=== PATIENT | male | born 1980 | race Caucasian/White ===

== ENCOUNTER 2021-12-18 08:12 | Outpatient (CLI) | payer OTHER ==
--- NOTE | 2021-12-18 10:01 | MRI Report ---
PROCEDURE: SHOULDER WO - LT INDICATIONS: SHOULDER PAIN TECHNIQUE: Noncontrast oblique coronal T2 fast spin echo with fat saturation, oblique sagittal T1 spin echo and T2 fast spin echo with fat saturation, axial T1 spin echo and T2 fast spin echo with fat saturation t hrough the shoulder. COMPARISON: None. FINDINGS: Image quality: Excellent. Rotator cuff tendons are intact. There is some mild to moderate tendinopathy of the subscapularis ten don present. There is abnormal morphology to the anterior glenoid labrum. Imaging findings may represent a labral tear and if further evaluation is clinically indicated an MRI arthrogram may be of further clinical v alue. Bicipital tendon is within its normal location the bicipital groove. No significant glenohumeral joint degenerative change is seen. There is mild AC joint degenerative ch luis fernando present. No significant joint effusion is identified. IMPRESSION: 1. Abnormal morphology to the anterior glenoid labrum. Given the imaging findings I would recommend a n MR arthrogram for further characterization. 2. 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 3. Mild AC joint degenerative change. Reviewed by: Hunter Calix MD on 12/18/2021 9:59 AM PST Approved by: Hunter Calix MD on 12/18/2021 9:59 AM PST Station ID: [id number]
== END 2021-12-18 08:13 | disposition home or self-care (01) ==
LOC: DI 08:12
PROVIDERS: ATTEND Family Medicine
DX: R93.6 Abnormal findings on diagnostic imaging of limbs (principal); M67.814 Other specified disorders of tendon, left shoulder; M19.012 Primary osteoarthritis, left shoulder

== ENCOUNTER 2023-01-25 09:26 | Outpatient (CLI) | payer OTHER ==
--- NOTE | 2023-01-26 08:21 | SLEEP CARE CONSULTATION ---
Information from patient questionnaire entered by Renzo Story. I have reviewed and concur with the information entered by Renzo Story. This document represents the service I personally performed and the decisions made by me, Leonard Worthington MD, [facility]. History of Present Illness Service Date and Time: 01/25/2023 0926 Reason for Visit: New patient Chief Complaint: reports: Other (PROVIDER REFFERAL) Date of Onset: 7YRS Usual bedtime: 9-10 Time it takes to fall asleep: 40MIN Snores at night: No Observed to quit breathing while asleep: No Sleeps alone due to snoring: No Number of times waking at night: 2 Reasons for waking at night: reports: Bathroom, Other (UNKNOWN) Additional HPI information: I had the pleasure of seeing Mr. Mercado today regarding the possibility of him having a sleep disorder. As you know, he is a 42-year-old gentleman who complains of pqprhogmh-jo-kxiyakc high blood pressure. Presently, he is taking two medications. The patient tells me that he normally goes to bed around 9 - 10 pm, and it takes him approximately 40 minutes to fall asleep. He has not been told that he snores loudly or irregularly at night. He has never been observed to stop breathing in his sleep. His sleeps in the same bed. He can recall waking up on the average of 2 times during the night. Most of the time he wakes up because of having to use the bathroom. He has never awakened because of his own snoring, choking, or having to gasp for air. There is a lot of tossing and turning in his sleep. He has somniloquy (sleep talking) but not somnambulism (sleep walking). Generally, there is no recollection of dreams. In the morning he usually gets up out of the bed around 4:30 5:15 a.m. not feeling refreshed nor rested. He usually has a morning headache that lasts 3 hours to all day. During the day he does not feel sleepy or fatigued. His score on [place] Sleepiness Scale is 9 out of 24. He has never fallen asleep while driving nor has had any accident due to sleepiness. He usually does not take naps during the day. He denies having restless leg syndrome. He reports having impaired concentration during the day. Subjective Initial [place] Sleepiness Scale score: 9 (01/25/23) Past Medical History Past Medical History: reports: Hypertension, Anxiety, Depression Social History The patient's occupation is a AM. Patient is Legally and lives in . Have you smoked in the past 12 months: No Alcohol use: No Caffeine use: No Family History Family history of sleep disordered breathing: No Allergies and Home Medications Known drug allergies: No Drug allergies reviewed: Yes Home medication list reviewed: Yes Review of Systems Weight gain over past 5 years: 10 Cardiovascular: reports: high blood pressure. denies: palpitations, chest pain, irregular heart rate or pulse, leg or foot swelling, have to sleep sitting up, other Respiratory: denies: shortness of breath, wheeze, sputum production, chronic cough, other Gastrointestinal: denies: heartburn, difficulty swallowing, nausea, vomitting, diarrhea, abdominal pain, other Urinary: denies: incontinence, frequency, urgency, impotence, other Neurological: denies: headaches, seizure, head trauma, disorientation, speech dysfunction, gait or balance problems, fainting or unconsciousness, other Psychiatric: reports: anxiety, depression Ear/Nose/Throat: denies: nasal congestion, sinus problems, nose bleeds, dry mouth/throat, hoarseness, injury to nose, tonsillectomy, wisdom teeth removed, other Endocrine: denies: thyroid disease, history of goiter, sluggishness, too hot or cold, excessive thirst, increased appetite, increased urination, unexplained weakness, other Musculoskeletal: denies: joint pain, neck pain, back pain, joint swelling, muscle pain or cramping, mobility problems, other Immunologic: denies: sneezing, rash, itching, allergies to food or environment, other Physical Exam Vital signs obtained and entered by: RENZO Zuniga MA Blood Pressure: 136/98 (LEFT ARM) Cuff size: regular Heart Rate: 70 O2 Saturation: 100 Height: 5 ft 10 in Weight: 207 lb 6.4 oz Body Mass Index: 29.7 BMI Classification: Overweight Neck circumference: 13 Mood/affect: Normal HEENT: No craniofacial malformation Nostrils: patent to airflow Turbinates: normal Septum: midline Mouth and throat: narrow oropharynx Soft palate: long Hard palate: normal Uvula: normal Uvula visualization: 50% Mallampati Class II Tongue: normal in size Tonsils: small Chin and jaw: normal size and position Neck: normal w/o lymphadenopathy or thyromegaly Heart: regular rate and rhythm Lungs: clear bilaterally Extremities: no edema or clubbing Neurologic: intact Impression and Plan IMPRESSION: 1. Suspected sleep apnea, as suggested by history of unrefreshed sleep, morning headache, cognitive impairment, and hypertension. Narrow oropharynx and obesity are common predisposing factors for obstructive sleep apnea-hypopnea syndrome. I recommend proceeding to polysomnography to confirm the diagnosis and to assess severity. I informed the patient of what the sleep studies involve and after some discussion, he agreed to proceed. Plan: 1. Schedule polysomnography and return in 1 to 2 weeks after the study to discuss result and initiate therapy. 2. Avoid alcohol, sedative and muscle relaxant around bedtime. 3. Attempt to lose some weight. Follow up with Sleep Care in: 1-2 months Visit Type: In Office Time Spent with Patient (minutes): 15 Provider Statement: I spent 100% of the Face to Face Visit with the patient with greater than 50% spent counseling the patient and coordination of care.
[2023-01-26 08:28] VITALS: BP 136/98; O2SAT 100
== END 2023-01-25 09:27 | disposition home or self-care (01) ==
LOC: SC 09:26
PROVIDERS: ATTEND Internal Medicine Pulmonary Disease
DX: G47.8 Other sleep disorders (principal); R51.9 Headache, unspecified; R41.89 Other symptoms and signs involving cognitive functions and awareness; I10 Essential (primary) hypertension; E66.3 Overweight; Z68.29 Body mass index [BMI] 29.0-29.9, adult
CPT/HCPCS: 99202; 99212

== ENCOUNTER 2023-02-23 20:34 | Outpatient (CLI) | payer OTHER | END 2023-02-23 20:35 | disposition home or self-care (01) | LOC: SC 20:34 | PROVIDERS: ATTEND Internal Medicine Pulmonary Disease | DX: G47.33 Obstructive sleep apnea (adult) (pediatric) (principal) | CPT/HCPCS: 95810 ==

== ENCOUNTER 2023-03-02 12:50 | Outpatient (CLI) | payer OTHER ==
--- NOTE | 2023-03-02 15:23 | MRI Report ---
PROCEDURE: SHOULDER WO - LT INDICATIONS: LEFT SHOULDER PAIN TECHNIQUE: Noncontrast oblique coronal T2 fast spin echo with fat saturation, oblique sagittal T1 spin echo and T2 fast spin echo with fat saturation, axial T1 spin echo and T2 fast spin echo with fat saturation t hrough the shoulder. COMPARISON: 12/18/2021. FINDINGS: Image quality: Excellent. Rotator cuff: Low to moderate grade articular and bursal surface partial-thickness tear involving dis angely supraspinatus at its insertion on humeral head is seen extending to musculotendinous junction. Di stal infraspinatus and subscapularis tendinosis is seen. No full-thickness rotator cuff tendon ruptur e. No rotator cuff muscle atrophy on sagittal images. Bones and bursae: No bone marrow contusions or fractures. Mild to moderate acromioclavicular joint o steoarthritic changes are seen with joint space narrowing and downward osteophyte formation depressin g on musculotendinous junction of supraspinatus. The acromion demonstrates conventional anatomy, with out an os acromiale. Small amount of subacromial subdeltoid bursal fluid is seen, no gross loose bodi es. Capsule and soft tissues: There is subtle fraying of superior anterior labrum at 12 to 1:00 position and show abnormal T2 hyperintense signal concerning for subtle superior anterior labral tear. The kennedi g head of the biceps tendon demonstrates normal location and morphology. The rotator interval appear s normal, without fibrosis. The coracohumeral ligament is normal in thickness. IMPRESSION: 1. Low to moderate grade articular and bursal surface partial-thickness tear involving distal suprasp inatus extending to musculotendinous junction. Distal infraspinatus and subscapularis tendinosis. No full-thickness rotator cuff tendon rupture. 2. Mild to moderate acromioclavicular joint osteoarthritis. No fracture or dislocation. Small amount of subacromial subdeltoid bursal fluid, no gross loose bodies. 3. Suggestion of subtle superior anterior labral tear at 12 to 1:00 position. Reviewed by: Garcia Agustin MD on 03/02/2023 3:22 PM PST Approved by: Garcia Agustin MD on 03/02/2023 3:22 PM PST Station ID: [id number]
== END 2023-03-02 12:51 | disposition home or self-care (01) ==
LOC: DI 12:50
PROVIDERS: ATTEND Orthopaedic Surgery
DX: M75.112 Incomplete rotator cuff tear or rupture of left shoulder, not specified as traumatic (principal); M19.012 Primary osteoarthritis, left shoulder; M75.52 Bursitis of left shoulder

== ENCOUNTER 2023-05-07 08:38 | Outpatient (CLI) | payer OTHER ==
--- NOTE | 2023-05-07 09:06 | Sleep Patient Instructions ---
Sleep Center Visit Summary - Patient Visit Information Reason for Visit: 2-month follow-up - Patient Instructions Instructions Attached: CPAP Additional Instructions: You were here for follow up of Positional therapy. You are being started on CPAP therapy with pressure setting at 4-15 cmH2O. You will need to call the sleep care office to set up your follow up once you have your CPAP machine to check compliance and response to therapy at that time. You may call the office with any concerns about pressure feeling too low or too much for adjustment, if needed. You should contact DME supplier for any questions or concerns about mask or equipment. Please call office to schedule a follow up appointment in the sleep care office one month after obtaining new device. - Clinic Information Contact: [facility] [address] [place] [address] [email or web address] T: [phone]
--- NOTE | 2023-05-07 09:10 | SLEEP CARE CONSULTATION ---
Information from patient questionnaire entered by Renzo Story. I have reviewed and concur with the information entered by Renzo Story. This document represents the service I personally performed and the decisions made by me, Cheryl Beckett ARNP. History of Present Illness Service Date and Time: 05/07/2023 0838 Previous diagnosis: Mild, Obstructive Sleep Apnea-Hypopnea Syndrome AHI: 5.4 (02/23/23) Reason for follow up: other (2 MONTH F/U POSITTIONAL) Type of Sleep Study: Polysomnography HPI additional information: ZARINA MCELROY was diagnosed to have mild, AHI 5.4, obstructive sleep apnea-hypopnea syndrome and returned today for positional therapy two month follow-up. Sleep Study - Results Type of Sleep Study: Polysomnography CPAP Compliance Data Compliance data discussion: He says he has not been able to stay off his back with use of pillows or rolls to help him. He says he moves a lot in bed. Subjective Initial [place] Sleepiness Scale score: 9 (01/25/23) Current [place] Sleepiness Scale score: 16 (05/07/23) Allergies and Home Medications Known drug allergies: No Drug allergies reviewed: Yes Home medication list reviewed: Yes (no changes) Allergy and home medication list: Allergies No Known Drug Allergies Allergy (Verified 05/05/23 08:53) Review of Systems Review of systems same as previous: No (HYPERTENSION) Physical Exam Vital signs obtained and entered by: RENZO Zuniga MA Blood Pressure: 139/87 (RIGHT ARM) Cuff size: regular Heart Rate: 68 O2 Saturation: 100 Height: 5 ft 10 in Weight: 204 lb 12.8 oz Body Mass Index: 29.3 BMI Classification: Overweight Impression and Plan 1. Obstructive Sleep Apnea-Hypopnea Syndrome, mild. Using positional therapy, the patient is not able to stay off his back. He says he has tried different methods with pillows or rolls behind his back but he moves so much that he ends up on his back at night. He is very tired during the day and just wants to get a good night sleep. He was recently evaluated by a clerical adviser and encouraged to try the CPAP. We discussed other options, including oral appliance therapy, but he would like to go with the CPAP. He will be started on nasal autoCPAP therapy with pressure set at 4-15 cmH2O. A manual titration study will be completed if unable to find optimal treatment pressure with office adjustments. Compliance guidelines also reviewed. A copy of compliance guidelines will be given for reference at check out. Because the apnea is more severe supine, I instructed to avoid sleeping supine using pillow positioning until able to start CPAP use. Patient's apnea severity and rationale for treatment to reduce apnea, improve sleep quality and reduce cardiovascular and cerebrovascular events was reviewed. I also reviewed the benefit of consistent therapy for hypertension, depression/anxiety. 2. Obesity, unspecified. Currently patients BMI is 29.3. Obesity increases the risk of apnea, CPAP pressure requirements and overall health risks especially cardiovascular and diabetes. Thus patient is advised to lose weight. * Nasal auto CPAP therapy, pressure at 4-15 cm H2O. * Attempt to lose weight. * Avoid alcohol consumption near bedtime. * Avoid supine sleep until using CPAP. * The patient is again cautioned about driving until sleepiness completely resolves. * Return one month after CPAP obtained. I will assess response to therapy and compliance at that time. Counseling Topics: Sleeping position, Weight loss health impact Prescriptions: Auto CPAP Follow up with Sleep Care in: other (Compliance follow up) Visit Type: In Office Time Spent with Patient (minutes): 20 Provider Statement: I spent 100% of the Face to Face Visit with the patient with greater than 50% spent counseling the patient and coordination of care.
[2023-05-07 09:13] VITALS: BP 139/87; O2SAT 100
== END 2023-05-07 08:39 | disposition home or self-care (01) ==
LOC: SC 08:38
PROVIDERS: ATTEND Nurse Practitioner Family
DX: G47.33 Obstructive sleep apnea (adult) (pediatric) (principal)
CPT/HCPCS: 99212; 99213

== ENCOUNTER 2023-06-14 12:45 | Outpatient (CLI) | payer OTHER ==
[2023-06-14 17:43] LABS: BASOPHILS # (AUTO) 0.1 10^3/uL (0.0-0.1); BASOPHILS % (AUTO) 0.8 %; EOSINOPHILS # (AUTO) 0.2 10^3/uL (0.0-0.7); EOSINOPHILS % (AUTO) 1.9 %; HGB - HEMOGLOBIN 14.5 g/dL (14.0-18.0); LYMPHOCYTES # (AUTO) 2.3 10^3/uL (1.5-3.5); LYMPHOCYTES % (AUTO) 25.6 %; MEAN CORPUSCULAR HEMOGLOBIN 29.9 pg (27.0-31.0); MEAN CORPUSCULAR HGB CONC 32.2 g/dL (32.0-36.0); MEAN CORPUSCULAR VOLUME 92.8 fL (80.0-94.0); MEAN PLATELET VOLUME 9.8 fL (7.4-11.4); MONOCYTES # (AUTO) 0.6 10^3/uL (0.0-1.0); MONOCYTES % (AUTO) 6.9 %; NEUTROPHILS # (AUTO) 5.9 10^3/uL (1.5-6.6); NEUTROPHILS % (AUTO) 64.3 %; PLT - PLATELET COUNT 469 10^3/uL (130-450); RED BLOOD COUNT 4.85 10^6/uL (4.70-6.10); RED CELL DISTRIBUTION WIDTH 11.9 % (12.0-15.0); WHITE BLOOD COUNT 9.1 x10^3/uL (4.8-10.8)
[2023-06-14 17:58] LABS: CALCIUM 10.3 mg/dL (8.5-10.3); CREATININE 0.8 mg/dL (0.6-1.3); POTASSIUM 3.3 mmol/L (3.5-4.5)
== END 2023-06-14 13:00 | disposition home or self-care (01) ==
LOC: LAB.N 12:45
PROVIDERS: ATTEND Physician Assistant Medical
DX: R60.0 Localized edema (principal)
CPT/HCPCS: 36415; 80048; 83880; 85025; 85379

== ENCOUNTER 2023-07-22 11:24 | Outpatient (CLI) | payer OTHER ==
--- NOTE | 2023-07-22 12:14 | Sleep Patient Instructions ---
Sleep Center Visit Summary - Patient Visit Information Reason for Visit: First compliance follow-up - Patient Instructions Additional Instructions: You were here for follow up of CPAP therapy. You will be continued on CPAP therapy with pressure at 5-7 cmH2O. You should follow up with sleep care in 3 months. You may contact us sooner for any questions or concerns. - Clinic Information Contact: [facility] [address] [place] [address] [email or web address] T: [phone]
--- NOTE | 2023-07-22 12:24 | SLEEP CARE CONSULTATION ---
Information from patient questionnaire entered by Sara Story. I have reviewed and concur with the information entered by Sara Story. This document represents the service I personally performed and the decisions made by me, Cheryl Beckett ARNP. History of Present Illness Service Date and Time: 07/22/2023 112 Previous diagnosis: Mild, Obstructive Sleep Apnea-Hypopnea Syndrome AHI: 5.4 (02/23/23) Reason for follow up: first compliance Equipment type: CPAP (RESMED Airsense 11, S/U 05/19/23) Equipment obtained from: Other ([facility]; getting supplies) Mask style: Nasal (over the nose) Mask brand: SurgiQuest (Eson 2) Backup mask available: No (will keep old mask when replaced) Last cushion change: not changed out yet Type of Sleep Study: Polysomnography (02/23/23) HPI additional information: ZRAINA MCELROY was diagnosed to have mild, AHI 5.4, obstructive sleep apnea-hypopnea syndrome and returned today for CPAP therapy first compliance follow-up. Sleep Study - Results Type of Sleep Study: Polysomnography CPAP Compliance Data - Data Reviewed with Patient Average duration of nightly device use: 5 hours Compliance rate %: 70 (/ days used initially) Current pressure setting (cmH2O): 5-7 (median 5.6, avg 6.7, max 6.8) Average residual AHI: 1.5 Central apnea: 0.3 Obstructive apnea: 0.6 Hypopnea: 0.5 Average large leak: 2.4 L/min Subjective Missed days of use due to: reports: illness (nasal congestion), other (fell asleep on couch) Patient concerns: reports: air blowing in eyes (sometimes), condensation in mask/hose, nasal congestion. denies: aerophagia, mask discomfort, mask leak noise, dry mouth, nose, throat, epistaxis Observed to snore while using device: No Current pressure setting perceived as: comfortable On therapy, patient: reports: sleeping better, other (still waking up tired). denies: drowsiness while driving Initial [place] Sleepiness Scale score: 9 (01/25/23) Current [place] Sleepiness Scale score: 16 (07/22/23) Allergies and Home Medications Known drug allergies: No Drug allergies reviewed: Yes Home medication list reviewed: Yes (no changes) Allergy and home medication list: Allergies No Known Drug Allergies Allergy (Verified 07/20/23 11:38) Review of Systems Review of systems same as previous: Yes (NO CHANGE) Physical Exam Vital signs obtained and entered by: SARA Zuniga MA Blood Pressure: 133/90 (LEFT ARM) Cuff size: regular Heart Rate: 69 O2 Saturation: 99 Height: 5 ft 10 in Weight: 205 lb 12.8 oz Body Mass Index: 29.5 BMI Classification: Overweight Impression and Plan 1. Obstructive Sleep Apnea-Hypopnea Syndrome, mild, with good treatment compliance and good apnea control. On CPAP therapy, the patient has better sleep quality and some improved restfulness in morning. He still complains of feeling some tiredness in the morning. He has significant improvement of his sleep apnea and is satisfied with current therapy. He has had some condensation in the hose and mask in the last week and he turned off his humidifier. I explained that he can turn up the temperature on his heated hose to reduce condensation and if he keeps a cold sleeping room he can obtain a hose cover to insulate the tube. He may also reduce humidifier setting as needed to reduce condensation. He voiced understanding. He has had issues with the mask leaking air into his eyes and says the larger mask is worse. His nose is touching the tip of his nose with the medium cushion. I gave him a Shey Nuance Pro gel pillows mask set to take home and try for increased comfort and to reduce air leaking into his eyes. Patient's apnea severity and rationale for treatment to reduce apnea, improve sleep quality and reduce cardiovascular and cerebrovascular events was reviewed. I also reviewed the benefit of consistent device use of CPAP for hypertension, depression/anxiety. 2. Overweight, unspecified. Currently patients BMI is 29.5. Obesity increases the risk of apnea, CPAP pressure requirements and overall health risks especially cardiovascular and diabetes. Thus patient is advised to lose weight. * Continue auto CPAP pressure at 5-7 cmH2O * Notify me if snoring with mask or feeling that the pressure is too much or too little * Attempt to lose weight * Call this office if any problems using CPAP * Return for follow up in 3 months, or sooner if concerns arise Continue with device pressure at (cmH2O): 5-7 Mask provided: Yes Counseling Topics: Spare mask, Weight loss health impact Follow up with Sleep Care in: 3 months Visit Type: In Office Time Spent with Patient (minutes): 20 Provider Statement: I spent 100% of the Face to Face Visit with the patient with greater than 50% spent counseling the patient and coordination of care.
[2023-07-22 12:32] VITALS: BP 133/90; O2SAT 99
== END 2023-07-22 11:25 | disposition home or self-care (01) ==
LOC: SC 11:24
PROVIDERS: ATTEND Nurse Practitioner Family
DX: G47.33 Obstructive sleep apnea (adult) (pediatric) (principal); E66.3 Overweight; Z68.29 Body mass index [BMI] 29.0-29.9, adult
CPT/HCPCS: 99212; 99213

== ENCOUNTER 2023-10-22 08:21 | Outpatient (CLI) | payer OTHER ==
--- NOTE | 2023-10-22 08:59 | Sleep Patient Instructions ---
Sleep Center Visit Summary - Patient Visit Information Reason for Visit: 3-month follow-up - Patient Instructions Additional Instructions: You were here for follow up of CPAP therapy. You will be continued on CPAP therapy with pressure at 5-7 cmH2O. You should follow up with sleep care in 6 months. You may contact us sooner for any questions or concerns. - Clinic Information Contact: [facility] [address] [place] [address] [email or web address] T: [phone]
--- NOTE | 2023-10-22 09:03 | SLEEP CARE CONSULTATION ---
Information from patient questionnaire entered by Renzo Story. I have reviewed and concur with the information entered by Renzo Story. This document represents the service I personally performed and the decisions made by , Cheryl Beckett ARNP. History of Present Illness Service Date and Time: 10/22/2023820 Previous diagnosis: Mild, Obstructive Sleep Apnea-Hypopnea Syndrome AHI: 5.4 (02/23/23) Reason for follow up: three month Equipment type: CPAP (Airsense 11, s/u 05/19/23) Equipment obtained from: Other ([facility]: getting supplies) Mask style: Nasal Backup mask available: No (has other mask but does not like it) Last cushion change: 1 month Type of Sleep Study: Polysomnography (02/23/23) HPI additional information: ZARINA MCELROY was diagnosed to have mild, AHI 5.4, obstructive sleep apnea-hypopnea syndrome and returned today for CPAP therapy three month follow-up. Sleep Study - Results Type of Sleep Study: Polysomnography CPAP Compliance Data - Data Reviewed with Patient Average duration of nightly device use: 5 HRS 41 MINS Compliance rate %: 68 (07/22/23-10/19/23; 69/90 days used) Current pressure setting (cmH2O): 5-7 Average residual AHI: 1.5 Central apnea: 0.2 Obstructive apnea: 0.7 Hypopnea: 0.5 Average large leak: 3.2 L/min Subjective Missed days of use due to: reports: illness (nasal congestion), travel Patient concerns: reports: mask leak noise, condensation in mask/hose, nasal congestion. denies: aerophagia, mask discomfort, air blowing in eyes, dry mouth, nose, throat, epistaxis Observed to snore while using device: No Current pressure setting perceived as: comfortable On therapy, patient: reports: sleeping better, awakening more refreshed. denies: drowsiness while driving Initial [place] Sleepiness Scale score: 9 (01/25/23) Current [place] Sleepiness Scale score: 15 (10/22/23) Allergies and Home Medications Known drug allergies: No Drug allergies reviewed: Yes Home medication list reviewed: Yes (no changes) Allergy and home medication list: Allergies No Known Drug Allergies Allergy (Verified 10/22/23 08:32) Review of Systems Review of systems same as previous: Yes (NO CHANGE) Physical Exam Vital signs obtained and entered by: RENZO Zuniga MA Blood Pressure: 148/93 (RIGHT ARM) Cuff size: regular Heart Rate: 87 O2 Saturation: 99 Height: 5 ft 10 in Weight: 195 lb (PER PT) Body Mass Index: 27.9 BMI Classification: Overweight Impression and Plan 1. Obstructive Sleep Apnea-Hypopnea Syndrome, mild, with fair treatment compliance and good apnea control. On CPAP therapy, the patient has better sleep quality. He had had minimal condensation in his mask that does not really bother him. The most concerning issue is nasal congestion as he is going to put on his mask. I advised him to try a saline nasal spray to rinse out nasal passages and help to relieve congestion in his nose. He says he does get some dry nose as well and he may use a nasal moisturizer. He voiced understanding. Patient's apnea severity and rationale for treatment to reduce apnea, improve sleep quality and reduce cardiovascular and cerebrovascular events was reviewed. I also reviewed the benefit of consistent device use of CPAP for hypertension, depression/anxiety. 2. Overweight, unspecified. Currently patients BMI is 27.9. Obesity increases the risk of apnea, CPAP pressure requirements and overall health risks especially cardiovascular and diabetes. Thus patient is advised to lose weight. * Continue auto CPAP pressure at 5-7 cmH2O * Notify me if snoring with mask or feeling that the pressure is too much or too little * Attempt to lose weight * Call this office if any problems using CPAP * Return for follow up in 6 months, or sooner if concerns arise Counseling Topics: Weight loss health impact Follow up with Sleep Care in: 6 months Visit Type: In Office Time Spent with Patient (minutes): 20 Provider Statement: I spent 100% of the Face to Face Visit with the patient with greater than 50% spent counseling the patient and coordination of care.
[2023-10-22 09:13] VITALS: BP 148/93; O2SAT 99
== END 2023-10-22 08:22 | disposition home or self-care (01) ==
LOC: SC 08:21
PROVIDERS: ATTEND Nurse Practitioner Family
DX: G47.33 Obstructive sleep apnea (adult) (pediatric) (principal); E66.3 Overweight; Z68.27 Body mass index [BMI] 27.0-27.9, adult
CPT/HCPCS: 99212; 99213